=== PATIENT | male | born 1965 | race Caucasian/White ===

== ENCOUNTER 2016-08-29 16:41 | Emergency (ER) | payer OTHER ==
--- NOTE | 2016-08-29 16:53 | ED ---
Syncope HPI - General Stated Complaint: syncope Time Seen by Provider: 08/29/16 16:49 - History of Present Illness Initial Comments: 51-year-old male having pressure on the left side of his scalp over the last 2 weeks. No fever no chills. Thinks it is related to food. His with him most the time. No focal numbness or weakness no visual disturbance changed his diet and cut way back today he felt faint he had no chest pain palpitations shortness of breath he just felt lightheaded dimming and then he found himself on the floor. Said no nausea no vomiting no diarrhea. Evaluated for seizures since childhood and was negative evaluation. Had problems for orthostatic changes when he would change positions quickly does not had that it also sees grown-up. - Related Data Home Medications Medication Instructions Recorded Confirmed Lisinopril [Zestril] 10 mg PO DAILY 12/27/14 08/29/16 Atorvastatin [Lipitor] 10 mg PO HS 08/29/16 08/29/16 Fish Oil/Dha/Epa [Fish Oil 1,200 1 cap PO DAILY 08/29/16 08/29/16 mg Fish Oil] Glucosamine Sulfate 500 mg PO DAILY 08/29/16 08/29/16 Turmeric Root Extract [Turmeric] 500 mg PO DAILY 08/29/16 08/29/16 Previous Rx's Medication Instructions Recorded Sulfamethox-Tmp 800-160Mg [Bactrim 1 tab PO Q12HR #20 tab 08/29/16 DS 800-160 mg] Allergies Allergy/AdvReac Type Severity Reaction Status Date / Time cortisone Allergy Unknown Unknown Verified 08/29/16 17:11 Childhood Penicillins Allergy Unknown Unknown Verified 08/29/16 17:11 Childhood Review of Systems ROS Statement: Those systems with pertinent positive or pertinent negative responses have been documented in the HPI. ROS Other: All systems not noted in ROS Statement are negative. Constitutional: Denies: fever, chills ENT: Denies: ear pain, throat pain Respiratory: Denies: cough Cardiovascular: Denies: chest pain, dyspnea on exertion Gastrointestinal: Denies: abdominal pain, nausea, vomiting, diarrhea Skin: Denies: rash Neurological: Reports: headache. Denies: weakness, numbness, paresthesias, confusion Psychiatric: Denies: anxiety, depression Hematological/Lymphatic: Denies: easy bleeding, easy bruising Past Medical History Past Medical History: Asthma, Hypertension, Osteoarthritis (OA) Additional Past Medical History / Comment(s): PAST HX OF ASTHMA, "RIGHT KIDNEY HURTS ON OCCASION"., FELL ON ICE IN OCTOBER AND INJURED RIGHT KNEE. History of Any Multi-Drug Resistant Organisms: None Reported Past Surgical History: No Surgical Hx Reported Additional Past Anesthesia/Blood Transfusion Reaction / Comment(s): HAS NEVER RECEIVED ANETHESIA Past Psychological History: No Psychological Hx Reported Smoking Status: Never smoker Past Alcohol Use History: None Reported Past Drug Use History: None Reported - Past Family History Mother Additional Family Medical History / Comment(s): CLOT IN BRAIN? General Exam General appearance: alert, in no apparent distress Head exam: Present: atraumatic Eye exam: Present: PERRL, EOMI ENT exam: Present: normal oropharynx, mucous membranes moist, TM's normal bilaterally Neck exam: Present: normal inspection Respiratory exam: Present: normal lung sounds bilaterally Cardiovascular Exam: Present: regular rate, normal heart sounds GI/Abdominal exam: Present: soft. Absent: tenderness Neurological exam: Present: alert, CN II-XII intact Psychiatric exam: Present: normal affect, normal mood Skin exam: Present: warm, dry Course Vital Signs 08/29/16 16:55 Temperature 100.2 F H Pulse Rate 79 Respiratory 18 Rate Blood Pressure 126/62 O2 Sat by Pulse 93 L Oximetry Medical Decision Making - Lab Data Result diagrams: 08/29/16 16:30 08/29/16 16:30 Lab Results 08/29/16 08/29/16 08/29/16 Range/Units 16:30 16:30 16:30 WBC 11.4 H (3.8-10.6) k/uL RBC 5.31 (4.30-5.90) m/uL Hgb 15.8 (13.0-17.5) gm/dL Hct 47.6 (39.0-53.0) % MCV 89.7 (80.0-100.0) fL MCH 29.8 (25.0-35.0) pg MCHC 33.3 (31.0-37.0) g/dL RDW 12.6 (11.5-15.5) % Plt Count 310 (150-450) k/uL Neutrophils % 69 % Lymphocytes % 20 % Monocytes % 8 % Eosinophils % 1 % Basophils % 1 % Neutrophils # 7.8 H (1.3-7.7) k/uL Lymphocytes # 2.2 (1.0-4.8) k/uL Monocytes # 0.9 (0-1.0) k/uL Eosinophils # 0.1 (0-0.7) k/uL Basophils # 0.1 (0-0.2) k/uL PT (9.0-12.0) sec INR (<1.1) APTT (22.0-30.0) sec Sodium 139 (137-145) mmol/L Potassium 4.1 (3.5-5.1) mmol/L Chloride 103 (98-107) mmol/L Carbon Dioxide 24 (22-30) mmol/L Anion Gap 12 mmol/L BUN 14 (9-20) mg/dL Creatinine 1.12 (0.66-1.25) mg/dL Est GFR (MDRD) Af Amer >60 (>60 ml/min/1.73 sqM) Est GFR (MDRD) Non-Af >60 (>60 ml/min/1.73 sqM) Glucose 109 H (74-99) mg/dL POC Glucose (mg/dL) (75-99) mg/dL POC Glu Lobster Catcher ID Calcium 9.3 (8.4-10.2) mg/dL Total Bilirubin 1.0 (0.2-1.3) mg/dL AST 16 L (17-59) U/L ALT 35 (21-72) U/L Alkaline Phosphatase 64 (38-126) U/L Total Creatine Kinase 75 (55-170) U/L CK-MB (CK-2) 0.6 (0.0-2.4) ng/mL CK-MB (CK-2) Rel Index 0.8 Troponin I <0.012 (0.000-0.034) ng/mL Total Protein 6.9 (6.3-8.2) g/dL Albumin 4.0 (3.5-5.0) g/dL 08/29/16 08/29/16 Range/Units 16:30 16:47 WBC (3.8-10.6) k/uL RBC (4.30-5.90) m/uL Hgb (13.0-17.5) gm/dL Hct (39.0-53.0) % MCV (80.0-100.0) fL MCH (25.0-35.0) pg MCHC (31.0-37.0) g/dL RDW (11.5-15.5) % Plt Count (150-450) k/uL Neutrophils % % Lymphocytes % % Monocytes % % Eosinophils % % Basophils % % Neutrophils # (1.3-7.7) k/uL Lymphocytes # (1.0-4.8) k/uL Monocytes # (0-1.0) k/uL Eosinophils # (0-0.7) k/uL Basophils # (0-0.2) k/uL PT 11.1 (9.0-12.0) sec INR 1.1 (<1.1) APTT 23.2 (22.0-30.0) sec Sodium (137-145) mmol/L Potassium (3.5-5.1) mmol/L Chloride (98-107) mmol/L Carbon Dioxide (22-30) mmol/L Anion Gap mmol/L BUN (9-20) mg/dL Creatinine (0.66-1.25) mg/dL Est GFR (MDRD) Af Amer (>60 ml/min/1.73 sqM) Est GFR (MDRD) Non-Af (>60 ml/min/1.73 sqM) Glucose (74-99) mg/dL POC Glucose (mg/dL) 101 H (75-99) mg/dL POC Glu Lobster Catcher ID Ney Dash Calcium (8.4-10.2) mg/dL Total Bilirubin (0.2-1.3) mg/dL AST (17-59) U/L ALT (21-72) U/L Alkaline Phosphatase (38-126) U/L Total Creatine Kinase (55-170) U/L CK-MB (CK-2) (0.0-2.4) ng/mL CK-MB (CK-2) Rel Index Troponin I (0.000-0.034) ng/mL Total Protein (6.3-8.2) g/dL Albumin (3.5-5.0) g/dL - EKG Data -: EKG Interpreted by Me 08/29/16 16:52 EKG 08/29/2016 1650 ventricular rate 79 bpm, NJ interval 170 ms QRS duration 104 ms QT interval 390 ms normal sinus rhythm normal ECG. - Radiology Data Radiology results: report reviewed CT returns with no intracranial abnormality but ethmoid and left maxillary sinusitis Disposition Clinical Impression: Vasovagal syncope, Ethmoid sinusitis Disposition: HOME SELF-CARE Condition: Good Instructions: Syncope (ED), Sinusitis (ED) Prescriptions: Sulfamethox-Tmp 800-160Mg [Bactrim DS 800-160 mg] 1 tab PO Q12HR #20 tab Time of Disposition: 18:11
[2016-08-29] MEDS ORDERED: SODIUM CHLORIDE 0.9% 500 ML IV STA (17:04)
[2016-08-29 17:06] LABS: Glucose,Whole Blood 101 mg/dL (75-99)
[2016-08-29 17:26] LABS: Basophils # (A) 0.1 k/uL (0-0.2); Basophils % (A) 1 %; CHCM 33.6; Eosinophils # (A) 0.1 k/uL (0-0.7); Eosinophils % (A) 1 %; HCT 47.6 % (39.0-53.0); HDW 2.33; HGB 15.8 gm/dL (13.0-17.5); Luc # (Auto) 0.36; Luc % (Auto) 3; Lymphocytes # (A) 2.2 k/uL (1.0-4.8); Lymphocytes % (A) 20 %; MCH 29.8 pg (25.0-35.0); MCHC 33.3 g/dL (31.0-37.0); MCV 89.7 fL (80.0-100.0); Mean Platelet Volume 7.1; Monocytes # (A) 0.9 k/uL (0-1.0); Monocytes % (A) 8 %; Neutrophils # (A) 7.8 k/uL (1.3-7.7); Neutrophils % (A) 69 %; RBC 5.31 m/uL (4.30-5.90); RDW 12.6 % (11.5-15.5); WBC 11.4 k/uL (3.8-10.6); WBC (Perox) 11.75
[2016-08-29 17:37] LABS: INR 1.1 (<1.1); Partial Thromboplastin Time 23.2 sec (22.0-30.0); Prothrombin Time 11.1 sec (9.0-12.0)
--- NOTE | 2016-08-29 17:44 | CT ---
EXAMINATION TYPE: CT brain wo con DATE OF EXAM: 08/29/2016 5:35 PM COMPARISON: NONE HISTORY: 51-year-old male with left sided headache TECHNIQUE: Examination was done in axial plane without intravenous contrast. Coronal and sagittal reconstructio ns performed. CT DLP: 1090.4 mGycm Automated exposure control for dose reduction was used. FINDINGS: There is no evidence of acute intracranial hemorrhage, acute ischemic changes, mass, mass-effect, or extra-axial fluid collection. There is no effacement of cerebral sulci or basal subarachnoid cister ns. There is no hydrocephalus. Slight asymmetry of the left lateral ventricle likely on the basis of congenital variation. There is no midline shift. Foster-white matter distinction is preserved. Moderate mucosal thickening left maxillary sinus and anterior left ethmoid air cells with air-fluid l evel in the left maxillary sinus. Cerumen within the left greater than right external auditory canal. Mastoid air cells well pneumatized. Rightward nasal septal deviation. Orbits and globes are intact. IMPRESSION: 1. No acute intracranial abnormality seen. 2. Acute on chronic left maxillary sinusitis. 3. Rightward nasal septal deviation.
--- NOTE | 2016-08-29 17:45 | XR ---
EXAMINATION TYPE: XR chest 2V DATE OF EXAM: 08/29/2016 5:25 PM COMPARISON: None HISTORY: 51-year-old male with syncope TECHNIQUE: Frontal and lateral views FINDINGS: The cardiomediastinal silhouette, aorta, and pulmonary vasculature are within normal limits. Lungs an d pleural spaces are clear. IMPRESSION: No acute cardiopulmonary process.
[2016-08-29 17:48] LABS: Creatine Kinase 75 U/L (55-170)
[2016-08-29 17:49] LABS: ALT 35 U/L (21-72); AST 16 U/L (17-59); Alkaline Phosphatase 64 U/L (38-126); Anion Gap 12 mmol/L; Blood Urea Nitrogen 14 mg/dL (9-20); Calcium 9.3 mg/dL (8.4-10.2); Carbon Dioxide 24 mmol/L (22-30); Chloride 103 mmol/L (98-107); Glucose 109 mg/dL (74-99); Non-African American GFR(MDRD) >60 (>60 ml/min/1.73 sqM); Potassium 4.1 mmol/L (3.5-5.1); Sodium 139 mmol/L (137-145); Total Protein 6.9 g/dL (6.3-8.2)
[2016-08-29 18:00] LABS: Creatine Kinase MB 0.6 ng/mL (0.0-2.4); Troponin I <0.012 ng/mL (0.000-0.034)
[2016-08-29 18:24] LABS: Erythrocyte Sedimentation Rate 7 mm/hr (0-15)
[2016-08-29 18:38] VITALS: BP 124/62; PULSE 74; RESP 16; TEMP 99.8
== END 2016-08-29 18:59 | disposition home or self-care (01) ==
LOC: EC 16:41
DX: J32.2 Chronic ethmoidal sinusitis (principal); J32.0 Chronic maxillary sinusitis; R55 Syncope and collapse; I10 Essential (primary) hypertension; M19.90 Unspecified osteoarthritis, unspecified site; Z79.899 Other long term (current) drug therapy; Z88.0 Allergy status to penicillin; Z88.8 Allergy status to other drugs, medicaments and biological substances
CPT/HCPCS: 36415; 70450; 71020; 80053; 82550; 82553; 84484; 85025; 85610; 85652; 85730; 93005; 96360; 99284

== ENCOUNTER → 2016-10-23 | Outpatient (CLI) | payer OTHER ==
--- NOTE | 2016-10-23 17:38 | US ---
EXAMINATION TYPE: US carotid duplex BILAT DATE OF EXAM: 10/23/2016 5:16 PM COMPARISON: NONE CLINICAL HISTORY: M54.2 Cervicalgia. EXAM MEASUREMENTS: RIGHT: Peak Systolic Velocity (PSV) cm/sec ----- Right CCA: 100.5 ----- Right ICA: 86.6 ----- Right ECA: 115.8 ICA/CCA ratio: 0.9 RIGHT: End Diastole cm/sec ----- Right CCA: 21.5 ----- Right ICA: 34.8 ----- Right ECA: 18.8 LEFT: Peak Systolic Velocity (PSV) cm/sec ----- Left CCA: 95.5 ----- Left ICA: 85.4 ----- Left ECA: 112.2 ICA/CCA ratio: 0.9 LEFT: End Diastole cm/sec ----- Left CCA: 24.8 ----- Left ICA: 26.0 ----- Left ECA: 19.5 VERTEBRALS (direction of flow): Right Vertebral: Antegrade Left Vertebral: Antegrade TECHNOLOGIST IMPRESSION: Very mild intimal wall thickening is noted at bilateral carotid bifurcation and PSV is wnl bilaterally. IMPRESSION: There is antegrade flow in the vertebral arteries. The images and measurements suggest c lose to 0% stenosis in both internal carotid arteries. Criteria for Assigning % of Stenosis / Diameter reduction (Estimation based on the indirect measurements of the internal carotid artery velocities (ICA PSV). 1. Normal (no stenosis)=ICA PSV < 125 cm/s: ratio < 2.0: ICA EDV<40 cm/s. 2. Less than 50% stenosis=ICA PSV < 125 cm/s: ratio < 2.0: ICA EDV<40 cm/s. 3. 50 to 69% stenosis=ICA PSV of 125 to 230 cm/s: ration 2.0 ? 4.0: ICA EDV 40-100 cm/s. 4. Greater than 70% stenosis to near occlusion= ICA PSV > 230 cm/s: ratio > 4.0: ICA EDV > 100 cm/s. 5. Near occlusion= ICA PSV velocities may be low or undetectable: variable ratio and ICA EDV. 6. Total occlusion=unable to detect flow.
== END | disposition home or self-care (01) ==
LOC: RADUSWWP 16:52
PROVIDERS: ATTEND Family Medicine
DX: M54.2 Cervicalgia (principal)
CPT/HCPCS: 93880

== ENCOUNTER 2016-11-13 07:48 | Observation (INO) | payer OTHER ==
[2016-11-13] MEDS ORDERED: SODIUM CHLORIDE 0.9% 1,000 ML IV STA (08:11)
[2016-11-13] MEDS ORDERED: ASPIRIN 81 MG CHEW PO STA (08:11)
[2016-11-13] MEDS ORDERED: NITROGLYCERIN OINT 1 INCH/GM PACKET TOPICAL STA (08:11)
--- NOTE | 2016-11-13 08:20 | ED ---
General Adult HPI - General Chief complaint: Back Pain/Injury Stated complaint: heart burn, chest tightness Time Seen by Provider: 11/13/16 08:01 Source: patient, RN notes reviewed Mode of arrival: wheelchair Limitations: no limitations - History of Present Illness Initial comments: Patient is a pleasant 51-year-old male presenting to the emergency department with chest and back discomfort. Onset of symptoms was a couple of days ago. Back discomfort is somewhat positional. Back discomfort is more so on the right than the left in the mid back. Patient was having some indigestion for the past few days. Patient states discomfort in the chest feels more like tightness today and more in the left side. Patient states both discomforts are mild at this time. No dyspnea, diaphoresis, or nausea. - Related Data Home Medications Medication Instructions Recorded Confirmed Lisinopril [Zestril] 10 mg PO DAILY 12/27/14 11/13/16 Fish Oil/Dha/Epa [Fish Oil 1,200 1 cap PO DAILY 08/29/16 11/13/16 mg Fish Oil] Glucosamine Sulfate 500 mg PO DAILY 08/29/16 11/13/16 Turmeric Root Extract [Turmeric] 500 mg PO DAILY 08/29/16 11/13/16 Aspirin 81 mg PO DAILY 11/13/16 11/13/16 Allergies Allergy/AdvReac Type Severity Reaction Status Date / Time cortisone Allergy Unknown Unknown Verified 11/13/16 08:29 Childhood Penicillins Allergy Unknown Unknown Verified 11/13/16 08:29 Childhood Review of Systems ROS Statement: Those systems with pertinent positive or pertinent negative responses have been documented in the HPI. ROS Other: All systems not noted in ROS Statement are negative. Constitutional: Denies: fever Eyes: Denies: eye pain ENT: Denies: ear pain Respiratory: Denies: cough, dyspnea Cardiovascular: Reports: chest pain Endocrine: Denies: fatigue Gastrointestinal: Denies: abdominal pain Genitourinary: Denies: urgency Musculoskeletal: Reports: back pain Skin: Denies: rash Neurological: Denies: weakness Past Medical History Past Medical History: Asthma, Hypertension, Osteoarthritis (OA) Additional Past Medical History / Comment(s): PAST HX OF ASTHMA, "RIGHT KIDNEY HURTS ON OCCASION"., FELL ON ICE IN OCTOBER AND INJURED RIGHT KNEE. History of Any Multi-Drug Resistant Organisms: None Reported Past Surgical History: Orthopedic Surgery Additional Past Anesthesia/Blood Transfusion Reaction / Comment(s): HAS NEVER RECEIVED ANETHESIA Past Psychological History: No Psychological Hx Reported Smoking Status: Never smoker Past Alcohol Use History: None Reported Past Drug Use History: None Reported - Past Family History Mother Additional Family Medical History / Comment(s): CLOT IN BRAIN? General Exam Limitations: no limitations General appearance: alert, in no apparent distress Head exam: Present: atraumatic Eye exam: Present: normal appearance, PERRL ENT exam: Present: normal oropharynx Neck exam: Present: normal inspection Respiratory exam: Present: normal lung sounds bilaterally. Absent: chest wall tenderness Cardiovascular Exam: Present: regular rate, normal rhythm Expanded Peripheral pulses: 2+: Radial (R), Radial (L), Dorsalis Pedis (R), Dorsalis Pedis (L) GI/Abdominal exam: Present: soft. Absent: tenderness Back exam: Present: normal inspection, tenderness (Mild discomfort above the right CVA region) Neurological exam: Present: alert Psychiatric exam: Present: normal affect, normal mood Skin exam: Absent: rash Course Vital Signs 11/13/16 11/13/16 11/13/16 07:49 09:00 09:50 Temperature 98.1 F Pulse Rate 82 60 66 Respiratory 18 20 Rate Blood Pressure 143/76 123/79 O2 Sat by Pulse 96 93 L Oximetry EKG Findings - EKG Comments: EKG Findings:: Normal sinus rhythm at 69. Normal intervals. Normal axis. Normal QRS. Normal ST-T. Medical Decision Making - Medical Decision Making Patient reexamined and resting comfortably in bed. Patient updated on results and plan. Patient states she is improved with nitroglycerin. Case discussed in detail with Dr. keys, who will admit for Dr. Saravia. Admission orders written. Cardiology consult placed. IV heparin started. - Lab Data Result diagrams: 11/13/16 08:42 11/13/16 08:42 Lab Results 11/13/16 11/13/16 11/13/16 Range/Units 08:42 08:42 08:42 WBC 6.4 (3.8-10.6) k/uL RBC 5.66 (4.30-5.90) m/uL Hgb 16.8 (13.0-17.5) gm/dL Hct 50.6 (39.0-53.0) % MCV 89.4 (80.0-100.0) fL MCH 29.6 (25.0-35.0) pg MCHC 33.1 (31.0-37.0) g/dL RDW 12.4 (11.5-15.5) % Plt Count 298 (150-450) k/uL Neutrophils % 66 % Lymphocytes % 23 % Monocytes % 5 % Eosinophils % 1 % Basophils % 1 % Neutrophils # 4.2 (1.3-7.7) k/uL Lymphocytes # 1.5 (1.0-4.8) k/uL Monocytes # 0.3 (0-1.0) k/uL Eosinophils # 0.1 (0-0.7) k/uL Basophils # 0.1 (0-0.2) k/uL PT (9.0-12.0) sec INR (<1.1) APTT (22.0-30.0) sec D-Dimer (<0.60) mg/L FEU Sodium 139 (137-145) mmol/L Potassium 4.6 (3.5-5.1) mmol/L Chloride 106 (98-107) mmol/L Carbon Dioxide 24 (22-30) mmol/L Anion Gap 9 mmol/L BUN 19 (9-20) mg/dL Creatinine 0.98 (0.66-1.25) mg/dL Est GFR (MDRD) Af Amer >60 (>60 ml/min/1.73 sqM) Est GFR (MDRD) Non-Af >60 (>60 ml/min/1.73 sqM) Glucose 97 (74-99) mg/dL Calcium 9.3 (8.4-10.2) mg/dL Magnesium 2.1 (1.6-2.3) mg/dL Total Bilirubin 0.9 (0.2-1.3) mg/dL AST 24 (17-59) U/L ALT 22 (21-72) U/L Alkaline Phosphatase 55 (38-126) U/L Total Creatine Kinase 83 (55-170) U/L CK-MB (CK-2) 0.7 (0.0-2.4) ng/mL CK-MB (CK-2) Rel Index 0.8 Troponin I <0.012 (0.000-0.034) ng/mL Total Protein 6.9 (6.3-8.2) g/dL Albumin 4.1 (3.5-5.0) g/dL 11/13/16 Range/Units 08:42 WBC (3.8-10.6) k/uL RBC (4.30-5.90) m/uL Hgb (13.0-17.5) gm/dL Hct (39.0-53.0) % MCV (80.0-100.0) fL MCH (25.0-35.0) pg MCHC (31.0-37.0) g/dL RDW (11.5-15.5) % Plt Count (150-450) k/uL Neutrophils % % Lymphocytes % % Monocytes % % Eosinophils % % Basophils % % Neutrophils # (1.3-7.7) k/uL Lymphocytes # (1.0-4.8) k/uL Monocytes # (0-1.0) k/uL Eosinophils # (0-0.7) k/uL Basophils # (0-0.2) k/uL PT 11.2 (9.0-12.0) sec INR 1.1 (<1.1) APTT 25.3 (22.0-30.0) sec D-Dimer 0.19 (<0.60) mg/L FEU Sodium (137-145) mmol/L Potassium (3.5-5.1) mmol/L Chloride (98-107) mmol/L Carbon Dioxide (22-30) mmol/L Anion Gap mmol/L BUN (9-20) mg/dL Creatinine (0.66-1.25) mg/dL Est GFR (MDRD) Af Amer (>60 ml/min/1.73 sqM) Est GFR (MDRD) Non-Af (>60 ml/min/1.73 sqM) Glucose (74-99) mg/dL Calcium (8.4-10.2) mg/dL Magnesium (1.6-2.3) mg/dL Total Bilirubin (0.2-1.3) mg/dL AST (17-59) U/L ALT (21-72) U/L Alkaline Phosphatase (38-126) U/L Total Creatine Kinase (55-170) U/L CK-MB (CK-2) (0.0-2.4) ng/mL CK-MB (CK-2) Rel Index Troponin I (0.000-0.034) ng/mL Total Protein (6.3-8.2) g/dL Albumin (3.5-5.0) g/dL - Radiology Data Radiology results: image reviewed (Chest x-ray shows scarring versus atelectasis left base. KUB shows no acute abnormality.) Critical Care Time Critical Care Time: Yes Total Critical Care Time: 31 Disposition Clinical Impression: Unstable angina Disposition: ADMITTED IP TO THIS HOSP
[2016-11-13 09:09] LABS: Basophils # (A) 0.1 k/uL (0-0.2); Basophils % (A) 1 %; CH 30.2; Eosinophils # (A) 0.1 k/uL (0-0.7); Eosinophils % (A) 1 %; HCT 50.6 % (39.0-53.0); HDW 2.43; HGB 16.8 gm/dL (13.0-17.5); Luc # (Auto) 0.23; Luc % (Auto) 4; Lymphocytes # (A) 1.5 k/uL (1.0-4.8); Lymphocytes % (A) 23 %; MCH 29.6 pg (25.0-35.0); MCHC 33.1 g/dL (31.0-37.0); MCV 89.4 fL (80.0-100.0); Mean Platelet Volume 7.3; Monocytes # (A) 0.3 k/uL (0-1.0); Monocytes % (A) 5 %; Neutrophils # (A) 4.2 k/uL (1.3-7.7); Neutrophils % (A) 66 %; RBC 5.66 m/uL (4.30-5.90); RDW 12.4 % (11.5-15.5); WBC 6.4 k/uL (3.8-10.6); WBC (Perox) 6.25
--- NOTE | 2016-11-13 09:14 | XR ---
EXAMINATION TYPE: XR chest 2V DATE OF EXAM: 11/13/2016 9:10 AM HISTORY: Chest Pain. REFERENCE: Previous study dated 08/29/2016. FINDINGS: A battery pack projects over the left side of the chest. There is scarring or atelectasis at the left lung base.. Pleural spaces are clear. Heart size is norm al. IMPRESSION: SCARRING VERSUS ATELECTASIS, LEFT LUNG BASE.
--- NOTE | 2016-11-13 09:15 | XR ---
EXAMINATION TYPE: XR KUB DATE OF EXAM ORDERED: 11/13/2016 9:09 AM HISTORY: Pain. COMPARISON: None. FINDINGS: The abdominal gas pattern is normal. There is no evidence of obstruction or free air. No u nusual calcifications are seen. IMPRESSION: NO ACUTE INTRA-ABDOMINAL ABNORMALITY.
[2016-11-13 09:27] LABS: INR 1.1 (<1.1); Partial Thromboplastin Time 25.3 sec (22.0-30.0); Prothrombin Time 11.2 sec (9.0-12.0)
[2016-11-13 09:35] LABS: ALT 22 U/L (21-72); AST 24 U/L (17-59); Alkaline Phosphatase 55 U/L (38-126); Anion Gap 9 mmol/L; Blood Urea Nitrogen 19 mg/dL (9-20); Calcium 9.3 mg/dL (8.4-10.2); Carbon Dioxide 24 mmol/L (22-30); Chloride 106 mmol/L (98-107); Glucose 97 mg/dL (74-99); Magnesium 2.1 mg/dL (1.6-2.3); Non-African American GFR(MDRD) >60 (>60 ml/min/1.73 sqM); Sodium 139 mmol/L (137-145); Total Bilirubin 0.9 mg/dL (0.2-1.3); Total Protein 6.9 g/dL (6.3-8.2)
[2016-11-13 09:41] LABS: Creatine Kinase 83 U/L (55-170); Potassium 4.6 mmol/L (3.5-5.1)
[2016-11-13 09:53] LABS: Creatine Kinase MB 0.7 ng/mL (0.0-2.4); Troponin I <0.012 ng/mL (0.000-0.034)
[2016-11-13] MEDS ORDERED: HEPARIN SODIUM,PORCINE 5,000 UNIT/ML 1 ML VIAL IV ONE (10:24)
[2016-11-13] MEDS ORDERED: NITROGLYCERIN SL TABS 0.4 MG TAB SUBLINGUAL PRN (10:24)
[2016-11-13] MEDS ORDERED: HEPARIN SODIUM,PORCINE 5,000 UNIT/ML 1 ML VIAL IV PRN (10:24)
[2016-11-13] MEDS ORDERED: HEPARIN SODIUM,PORCINE/D5W PMX 25,000 UNIT in DEXTROSE/WATER 1 500ML.BAG IV SCH (10:30)
[2016-11-13] MEDS ORDERED: NITROGLYCERIN OINT 1 INCH/GM PACKET TOPICAL SCH (12:00)
[2016-11-13 13:01] VITALS: PULSE 59
[2016-11-13 13:21] LABS: Appearance,Urine Clear (Clear); Bilirubin,Urine Negative (Negative); Glucose,Urine (UA) Negative (Negative); Ketones,Urine 1+ (Negative); Leukocyte Esterase,Urine Negative (Negative); Nitrite,Urine Negative (Negative); PH, Urine 6.5 (5.0-8.0); Protein,Urine Negative (Negative); UA Billing (MACRO vs. MICRO) CHEM; Urobilinogen,Urine <2.0 mg/dL (<2.0)
[2016-11-13] MEDS ORDERED: LISINOPRIL 10 MG TAB PO SCH (13:45)
[2016-11-13 14:41] LABS: Creatine Kinase 72 U/L (55-170)
--- NOTE | 2016-11-13 14:51 | XR ---
EXAMINATION TYPE: XR lumbar spine with bend/flex DATE OF EXAM ORDERED: 11/13/2016 2:17 PM HISTORY: low back pain at LS junction. COMPARISON: None. FINDINGS: Vertebral body height and alignment are maintained. There is no abnormal motion of the spi ne in flexion or extension. There is no spondylolisthesis or spondylolysis. There is disc space loss at L5-S1. There is a large hypertrophic spur arising anteriorly at L1-2. There is mild facet arthropa thy bilaterally at L5-4-5 and L5-S1. The pedicles are intact. IMPRESSION: 1. NO ACUTE OSSEOUS LESION. 2. MODERATE DEGENERATIVE CHANGE.
[2016-11-13 14:54] LABS: Creatine Kinase MB 0.5 ng/mL (0.0-2.4); Troponin I <0.012 ng/mL (0.000-0.034)
--- NOTE | 2016-11-13 15:55 | CONS ---
DATE OF CONSULTATION: CHIEF COMPLAINT: Chest pain. Ritchie is a 51-year-old gentleman with history of hypertension and dyslipidemia, who has had an episode of syncope in August of this year and is currently being worked up by Dr. Maza in my practice. Came to hospital primarily with left-sided flank discomfort. they put nitro paste on him following which his pain had resolved. The last few days the patient has had heartburn. At the time of my evaluation, he is pain free, hemodynamically stable and in no apparent distress. He had an EKG that is within normal limits without ST-T wave changes. One set of troponin is negative. Past medical history is significant for hypertension, dyslipidemia, and syncope. Medications include tumeric, Zestril 10 daily, glucosamine 500 daily, fish oil, and aspirin. ALLERGIC TO PENICILLIN AND CORTISONE. FAMILY HISTORY: Negative for premature coronary artery disease. SOCIAL HISTORY: Negative for smoking, EtOH abuse or drug abuse. REVIEW OF SYSTEMS: HEENT: Unremarkable. CARDIAC: As described above. RESPIRATORY: Negative. GI: Negative. GENITOURINARY: Negative. ALLERGY/IMMUNOLOGY: Negative. MUSCULOSKELETAL: Negative. DERM: Negative. CONSTITUTIONAL: Negative. ONCOLOGICAL: Negative. The rest of the system review is not relevant. On exam, comfortable at rest. Vital signs are stable. There is no jugular venous distention. Carotid upstroke is normal. There is no bruit. Chest exam reveals good air entry bilaterally. Heart exam reveals first and second heart sounds. No gallop. No murmur, no rub. Abdomen is soft, nontender. Exam of the extremities did not reveal edema. Peripheral pulses are felt. ASSESSMENT: 1. Atypical chest pain, probably related to heartburn. 2. History of syncope, work-up in progress. Patient currently has an event monitor on him. PLAN: Patient has already been scheduled for an outpatient stress test and echocardiogram next week. Will obtain serial CPKs and EKGs. If myocardial infarction is ruled out, please stop the heparin, discharge him home and asked him to keep his follow-up with Dr. Maza.
[2016-11-13 16:39] VITALS: BP 113/67; RESP 18; TEMP 98.2
--- NOTE | 2016-11-13 16:40 | HP ---
DATE OF ADMISSION: 11/13/2016 PRESENTING COMPLAINT: Not feeling well HISTORY OF PRESENTING COMPLAINT: This is a 51-year-old patient of Dr. Saravia whose chronic stable medical conditions include asthma, GERD, hypertension, osteoarthritis. Patient had some nonspecific symptoms for about 2 to 3 months. Back in August the patient started not eating too much, started not feeling well. Wednesday decided not to eat and towards the evening, actually had an episode when he passed out. Saw Dr. Maza and patient got a monitor, which he is supposed to wear for 4 weeks. He is into 3 weeks. Now patient presented with multitude of symptoms including heartburn, just central, does not radiate anywhere. Also he describes some pain in the left side of the chest, more so when he turns around. Does not radiate to neck or arm, not associated with short of breath. No dizziness. Localized. Like I said is very particular in position when he turns. Also patient has got low back pain at the level of the hip and very particular in a particular position, slightly better when he walks around but worse when he gets up in the morning. Because of these multitude of symptoms, the patient decided to come in. Patient was supposed to have a stress test per Cardiology. The patient was scheduled to have a stress test as an outpatient by Dr. Maza. When given a history he flipped from one symptom to the other, different parts of the body. REVIEW OF SYSTEMS: CONSTITUTIONAL: None. HEENT: Also complains of some pain in her neck sometimes. RESPIRATORY: As above. CARDIOVASCULAR: As above. GASTROINTESTINAL: Heartburn. GENITOURINARY: None. MUSCULOSKELETAL: Arthritic pain, especially in the knees. DERMATOLOGICAL: None. HEMATOLOGICAL: None. LYMPHATIC: None. PSYCHIATRY: Very anxious type. NEUROLOGICAL: None. Past history of asthma, GERD, hypertension, osteoarthritis. PAST SURGICAL HISTORY: Right knee arthroscopy. SOCIAL HISTORY: Lives by himself, does not smoke or drink alcohol. FAMILY HISTORY: Mother age of 85 with clot in the brain. HOME MEDICATIONS: 1. ( ) 500 mg p.o. daily. 2. Zestril 10 mg p.o. daily. 3. Glucosamine 500 mg p.o. daily. 4. Fish oil 1 capsule p.o. daily. 5. Aspirin 81 mg p.o. daily. ALLERGIES: CORTISONE AND PENICILLIN. On examination, temperature 98.1, pulse 82, respiration 18, blood pressure 142/76, pulse ox 96% on room air. GENERAL APPEARANCE: Well built, BMI of 33.5, sitting up, anxious -appearing. EYES: Pupils equal. Conjunctivae normal. HEENT: Oral cavity normal. NECK: JVD not raised. Mass not palpable. RESPIRATORY: Effort normal. Lungs are clear. CARDIOVASCULAR: First and second sounds normal. No edema. ABDOMEN: Soft, nontender. Liver and spleen not palpable. LYMPHATIC: No lymph node palpable in neck or axillae. PSYCHIATRY: Alert and oriented x3. Mood and affect anxious appearing. NEUROLOGICAL: Pupils equal. Cranial nerves grossly intact. Power and sensation grossly intact. INVESTIGATIONS: White count 6.5, hemoglobin 16.8, potassium 4.6. BUN and creatinine are normal. EKG normal sinus rhythm. ASSESSMENT: 1. This is a patient with multitude of symptoms not really cardiac sounding. Patient's chest wall pain sounds to be more musculoskeletal as it is very positional. Patient already has wood type finisher arranged as per outpatient and due for stress test as an outpatient. 2. Low back pain rather classical of musculoskeletal. Will get a lumbar spine x-ray done. 3. Mild intermittent asthma. 4. Gastroesophageal reflux disease. 5. Essential hypertension. 6. Primary osteoarthritis of both knees. PLAN: Cardiology was consulted. Troponins are in place. Will do a lumbosacral spine x-ray. Since patient's symptoms seems to be present for 3 days and actually 1 troponin by itself is sufficient. Care was discussed with the patient. Will await cardiac input and go from there.
[2016-11-14] MEDS ORDERED: ASPIRIN 325 MG TAB PO SCH (09:00)
[2016-11-14] MEDS ORDERED: ASPIRIN 81 MG CHEW PO SCH (09:00)
--- NOTE | 2016-11-16 18:17 | DS ---
DATE OF ADMISSION: 11/13/2016 DATE OF DISCHARGE: 11/13/2016 FINAL DIAGNOSIS(ES): 1. Lower back pain from lumbar degenerative joint disease , present at admission. 2. Mild intermittent asthma. 3. Gastroesophageal reflux disease. 4. Essential admission. 5. Primary osteoarthritis of both knees. HOSPITAL COURSE: This patient presented with low back pain. X-ray did confirm degenerative joint disease. Patient already put on monitor by Dr. Maza. Troponins are negative. Patient scheduled for an outpatient stress test. Seen by Dr. Lira. Wishes to keep him to do the stress test as an outpatient. The patient's presentation is noncardiac sounding. On exam, lungs are clear. CARDIOVASCULAR: First and second sounds normal. Tropes are negative. DISCHARGE MEDICATIONS: 1. Zestril 10 mg p.o. daily. 2. Fish oil 200 mg p.o. daily. 3. Glucosamine 500 mg p.o. daily. 4. Demadex 5 mg p.o. daily. 5. Aspirin 81 mg p.o. daily. Follow-up with Dr. Saravia on 11/17/2016. Follow-up with Dr. Maza in one week.
== END 2016-11-13 17:44 | disposition home or self-care (01) ==
LOC: EC 07:48 → 3OBS 10:24
PROVIDERS: ADMIT Hospitalist; ATTEND Hospitalist
DX: M47.816 Spondylosis without myelopathy or radiculopathy, lumbar region (principal); J45.20 Mild intermittent asthma, uncomplicated; R07.89 Other chest pain; K21.9 Gastro-esophageal reflux disease without esophagitis; I10 Essential (primary) hypertension; M17.0 Bilateral primary osteoarthritis of knee; R55 Syncope and collapse; E78.5 Hyperlipidemia, unspecified; M19.90 Unspecified osteoarthritis, unspecified site; R12 Heartburn; Z79.82 Long term (current) use of aspirin; Z79.899 Other long term (current) drug therapy; Z88.8 Allergy status to other drugs, medicaments and biological substances; Z88.0 Allergy status to penicillin
CPT/HCPCS: 99291; 36415; 93005; 85379; 80053; 82550; 82553; 83735; 84484; 85025; 85610; 85730; 81003; 87086; 71020; 72114; 74000; G0378; J1644 ×2; 96374

== ENCOUNTER → 2017-02-10 | Outpatient (CLI) | payer OTHER ==
--- NOTE | 2017-02-11 09:11 | US ---
EXAMINATION TYPE: US abdomen complete DATE OF EXAM: 02/10/2017 COMPARISON: NONE CLINICAL HISTORY: Abd Pain R10.9. Midline and LUQ pain that started in October and heartburn, symptoms better now EXAM MEASUREMENTS: Liver Length: 15.7 cm Gallbladder Wall: 0.3 cm CBD: 0.5 cm Spleen: 11.5 cm Right Kidney: 9.5 x 5.0 x 5.4 cm Left Kidney: 12.3 x 5.2 x 6.1 cm overlying bowel gas limits exam Pancreas: limited views appear wnl Liver: difficult to penetrate, intercostal imaging due to gas Gallbladder: wnl Evidence for sonographic Cole's sign: no CBD: wnl Spleen: wnl Right Kidney: wnl Left Kidney: wnl Upper IVC: wnl Abd Aorta: wnl IMPRESSION: 1. Visualized portions of the abdomen ultrasound or unremarkable.
== END | disposition home or self-care (01) ==
LOC: RADUSWWP 15:34
PROVIDERS: ATTEND Family Medicine
DX: R10.9 Unspecified abdominal pain (principal)
CPT/HCPCS: 76700

== ENCOUNTER → 2017-03-13 | Outpatient (CLI) | payer OTHER ==
--- NOTE | 2017-03-13 16:01 | MR ---
MR brain without contrast HISTORY: An 54.81, occipital neuralgia, family history aneurysm Multiplanar multisequence imaging obtained through the brain and correlated to CT brain 08/29/2016 There is no restricted diffusion. Cerebellopontine angles, corpus callosum, pituitary, cervical medul ethan junction are normal. Orbits show symmetric appearance. There are normal vascular flow voids. Bra in signal is maintained with the exception of approximately 2-3 periventricular, deep white matter hy perintensities on inversion recovery and T2-weighted sequences. No hemorrhage or hydrocephalus. Infla mmatory change present in the left maxillary sinus. The orbits show symmetric appearance. IMPRESSION: Nonspecific white matter demyelination of questionable clinical significance. Sinus disea se.
--- NOTE | 2017-03-13 16:08 | MR ---
EXAMINATION TYPE: MR angio head wo con DATE OF EXAM: 03/13/2017 COMPARISON: MR brain same date HISTORY: Family hx of aneurysm, No symptoms, Occipital Neuralgia TECHNIQUE: Time of flight images focusing on the [place] were performed without contrast. FINDINGS: Anterior and posterior circulations are patent. The left vertebral artery is dominant. Ther e is no evident aneurysm or vascular malformation. No filling defect, no dissection or significant st enosis. IMPRESSION: Unremarkable [place] MRA.
== END | disposition home or self-care (01) ==
LOC: RADMRIMAIN 14:40
PROVIDERS: ATTEND Psychiatry & Neurology Neurology
DX: M54.81 Occipital neuralgia (principal)
CPT/HCPCS: 70544; 70551

== ENCOUNTER 2017-03-19 11:16 | Day surgery (SDC) | payer OTHER ==
[2017-03-16 15:19] VITALS: BMI 33.9
[~2017-03-19 11:16] MED LIST: LACTATED RINGERS 1,000 ML IV SCH; LIDOCAINE 1% 20 ML VIAL (10MG/ML) FOR IV START INTRADERMA PRN
[2017-03-19 12:37] VITALS: RESP 18; TEMP 98.5
[2017-03-19] MEDS ORDERED: LACTATED RINGERS 1,000 ML IV ONE (12:38)
[2017-03-19] MEDS ORDERED: LIDOCAINE 1% INJ 10MG/ML (20 ML MDV) ONE (13:07)
[2017-03-19] MEDS ORDERED: PROPOFOL 10 MG/ML 20 ML VIAL IV ONE (13:07)
--- NOTE | 2017-03-19 13:31 | P.PCN ---
Date of Procedure: 03/19/17 Preoperative Diagnosis: Postoperative Diagnosis: Procedure(s) Performed: Brief history: Patient is a pleasant 51-year-old white male, scheduled for an elective upper endoscopy as well as colonoscopy as a part of evaluation of GERD and intermittent rectal bleeding. Procedure performed: Esophagogastroduodenoscopy with biopsy Colonoscopy Preoperative diagnosis: GERD/intermittent rectal bleeding Anest[place]: [facility] [place]: After informed consent was obtained from the patient was brought into the endoscopy unit and IV sedation was administered by anesthesia under continuous monitoring. Initially upper endoscopy was done. The Olympus GF 160 video endoscope was inserted inserted into the mouth and esophagus intubated without any difficulty and was gradually advanced into the stomach and duodenum and carefully examined. The bulb and second part of the duodenum appeared normal. The scope was then withdrawn into the stomach adequately insufflated with air and upon careful examination the antrum had mild gastritis and biopsies were done from this area. The body, cardia and fundus appeared normal. The scope was then withdrawn into the esophagus. The GE junction was located at 40 cm to the incisors. It appeared regular with 2 superficial erosions consistent with LA grade A reflux esophagitis.. Rest of the esophagus appeared normal. Patient tolerated the procedure well. At this time the patient continued to remain sedation. Initial digital rectal examination was normal. Olympus CF 160 video colonoscope was then inserted into the rectum and gradually advanced to the cecum without any difficulty. Careful examination was performed as the scope was gradually being withdrawn. The prep was excellent. The cecum, ascending colon, transverse colon, descending colon, sigmoid colon and rectum appeared normal. Scattered sigmoid diverticulosis seen. Retroflexion was performed in the rectum and no lesions were noted. Patient tolerated the procedure well. Impression: 1. Upper endoscopy revealed mild antral gastritis and LA grade A reflux esophagitis 2. Colonoscopy revealed scattered sigmoid diverticulosis but no evidence of colorectal neoplasia Recommendations: Findings of this examination were discussed with the patient as well as his family. He was advised to follow with the biopsy results. if he continues to have chest pressure or heartburn and he was advised to use [id number] H2 blockers as needed. He can have a repeat colonoscopy in 10 years Implants: Indications for Procedure: Operative Findings: Description of Procedure:
[2017-03-19 13:58] VITALS: BP 129/74; PULSE 58
== END 2017-03-19 14:36 | disposition home or self-care (01) ==
LOC: ORWHC2ENDO 11:16
PROVIDERS: ATTEND Internal Medicine Gastroenterology
DX: K21.9 Gastro-esophageal reflux disease without esophagitis (principal); K29.50 Unspecified chronic gastritis without bleeding; K57.30 Diverticulosis of large intestine without perforation or abscess without bleeding; K62.5 Hemorrhage of anus and rectum; I10 Essential (primary) hypertension; Z79.82 Long term (current) use of aspirin; Z79.899 Other long term (current) drug therapy; Z88.0 Allergy status to penicillin; Z91.09 Other allergy status, other than to drugs and biological substances
CPT/HCPCS: 88305; 88342; 45378; 43239; J2001; J2704

== ENCOUNTER → 2020-11-15 | Outpatient (CLI) | payer OTHER ==
--- NOTE | 2020-11-15 16:14 | XR ---
EXAMINATION TYPE: XR knee limited LT DATE OF EXAM: 11/15/2020 COMPARISON: 04/20/2014 HISTORY: Fall, pain TECHNIQUE: 2 view left knee FINDINGS: No joint effusion is evident. Superficial soft tissue swelling is likely present superior t o the patella. Joint spaces appear preserved. Calcification is within the medial lateral menisci, lik bisi related to calcium pyrophosphate deposition disease. There is some narrowing of the medial compar tment compatible some degenerative change. No acute fractures are evident. Follow up exams can be performed 7-10 days from acute trauma for continued pain. IMPRESSION: 1. No acute osseous abnormality. 2. Superficial soft tissue swelling superior to patella. 3. Calcified menisci.
== END | disposition home or self-care (01) ==
LOC: RADXRMAIN 11:20
PROVIDERS: ATTEND Internal Medicine
DX: M23.304 Other meniscus derangements, unspecified medial meniscus, left knee (principal); M23.301 Other meniscus derangements, unspecified lateral meniscus, left knee

== ENCOUNTER → 2020-11-21 | Outpatient (CLI) | payer OTHER ==
--- NOTE | 2020-11-21 15:04 | US ---
EXAMINATION TYPE: US kidneys/renal and bladder DATE OF EXAM: 11/21/2020 COMPARISON: NONE CLINICAL HISTORY: R94.4 Abnormal results of kidney function studies. abn renl function EXAM MEASUREMENTS: Right Kidney: 10.5 x 4.8 x 4.4 cm Left Kidney: 11.9 x 6.1 x 3.4 cm Right Kidney: No hydronephrosis or masses seen Left Kidney: No hydronephrosis or masses seen Bladder: wnl Bilateral Jets seen: Yes There is no evidence for hydronephrosis at this point in time. No nephrolithiasis is seen. No kaylee s are identified. The urinary bladder is anechoic. Bilateral ureteral jets are seen. IMPRESSION: No distinct abnormality seen.
== END | disposition home or self-care (01) ==
LOC: RADUSWWP 14:35
PROVIDERS: ATTEND Family Medicine
DX: R94.4 Abnormal results of kidney function studies (principal)
CPT/HCPCS: 76770

== ENCOUNTER → 2022-07-15 | Outpatient (CLI) | payer OTHER ==
[2022-07-15 19:07] LABS: HCT 48.7 % (39.6-50.0); HGB 15.6 g/dL (13.0-17.0); MCH 28.8 pg (27.0-32.0); MCV 89.9 fL (80.0-97.0); Mean Platelet Volume 9.8 fL (9.5-12.2); NRBC Per 100 WBC 0 /100 WBCS (0.0-0.0); Platelet Count 289 X 10*3/uL (140-440); RBC 5.42 X 10*6/uL (4.40-5.60); RDW 12.9 % (11.5-14.5); WBC 9.25 X 10*3/uL (4.50-10.00)
[2022-07-15 19:30] LABS: Appearance,Urine Clear (Clear); Bilirubin,Urine Negative (Negative); Blood,Urine Trace (Negative); Color,Urine Yellow (Yellow); Ketones,Urine 15 mg/dL (Negative); Nitrite,Urine Negative (Negative); PH, Urine 5.5 (5.0-8.0); Specific Gravity,Urine 1.017 (1.001-1.030); Urobilinogen,Urine 0.2 (0.2,1.0)
[2022-07-15 19:37] LABS: Bacteria,Urine None Seen /HPF (None Seen)
[2022-07-15 19:45] LABS: ALT 52 U/L (10-49); AST 32 U/L (14-35); African American GFR (CKD) 86.9 (60.0-200.0); BUN/Creat Ratio 11.83 Ratio (12.00-20.00); Blood Urea Nitrogen 12.9 mg/dL (9.0-27.0); Calcium 9.1 mg/dL (8.7-10.3); Carbon Dioxide 26.8 mmol/L (20.0-27.5); Chloride 99 mmol/L (96-109); Chol/HDL Ratio 5.26 Ratio; Glucose 95 mg/dL (70-110); LDL Cholesterol,Calculated 142.2 mg/dL (0.0-131.0); Potassium 3.8 mmol/L (3.5-5.5); Sodium 137 mmol/L (135-145)
== END | disposition home or self-care (01) ==
LOC: LABWHC1 13:26
PROVIDERS: ATTEND Family Medicine
DX: Z00.01 Encounter for general adult medical examination with abnormal findings (principal); I10 Essential (primary) hypertension; E78.5 Hyperlipidemia, unspecified; E66.9 Obesity, unspecified; N40.0 Benign prostatic hyperplasia without lower urinary tract symptoms
CPT/HCPCS: 36415; 80048; 80061; 81001; 83036; 84153; 84450; 84460; 85027

== ENCOUNTER 2024-10-18 10:17 | Emergency (ER) | payer OTHER ==
[2024-10-18 10:24] VITALS: RESP 20
--- NOTE | 2024-10-18 10:39 | ED ---
Lower Extremity Injury HPI - General Chief Complaint: Extremity Injury, Lower Stated Complaint: [facility] Time Seen by Provider: 10/18/24 10:36 Source: patient, RN notes reviewed Mode of arrival: ambulatory Limitations: no limitations - History of Present Illness Initial Comments: 59-year-old male sent from work for right lower leg injury. States this morning he was carrying heavy loads of laundry. Shortly after loading, he noticed a pain in his right calf with weightbearing. States pain is worse with initial weightbearing after sitting and improves with continued ambulation. Reports no pain with sitting or laying. He was sent for [facility]. - Related Data Home Medications Medication Instructions Recorded Confirmed lisinopriL [Zestril] 10 mg PO DAILY 12/27/14 03/16/17 Fish Oil/Dha/Epa [Fish Oil 1,200 1 cap PO DAILY 08/29/16 03/16/17 mg Fish Oil] Glucosamine Sulfate 500 mg PO DAILY 08/29/16 03/16/17 Turmeric Root Extract [Turmeric] 500 mg PO DAILY 08/29/16 03/16/17 Aspirin 81 mg PO DAILY 11/13/16 03/16/17 Allergies Allergy/AdvReac Type Severity Reaction Status Date / Time cortisone Allergy Unknown Rash/Hives Verified 10/18/24 10:23 Penicillins Allergy Unknown Hallucinati Verified 10/18/24 10:23 ons Review of Systems ROS Statement: Those systems with pertinent positive or pertinent negative responses have been documented in the HPI. ROS Other: All systems not noted in ROS Statement are negative. Past Medical History Past Medical History: Asthma, Hypertension Additional Past Medical History / Comment(s): Pt states he has had L sided head pain intermittently since 08/2016, he states yrs ago after carrying a heavy air conditioner up several stairs he had severe tachycardia-he recently was seen by Dr. Menendez and is wearing a cardiac recording device. PAST HX OF ASTHMA, "RIGHT KIDNEY HURTS ON OCCASION", athritis bilateral knees. History of Any Multi-Drug Resistant Organisms: None Reported Past Surgical History: Orthopedic Surgery Additional Past Surgical History / Comment(s): R knee arthroscopy Past Anesthesia/Blood Transfusion Reactions: No Reported Reaction Additional Past Anesthesia/Blood Transfusion Reaction / Comment(s): HAS NEVER RECEIVED ANETHESIA Past Psychological History: No Psychological Hx Reported Smoking Status: Never smoker Past Alcohol Use History: None Reported Past Drug Use History: None Reported - Past Family History Father History Unknown: Yes Mother Additional Family Medical History / Comment(s): CLOT IN BRAIN? Mother at the age of 85yrs. General Exam Limitations: no limitations General appearance: alert, in no apparent distress Head exam: Present: atraumatic, normocephalic, normal inspection Right Knee exam: Present: normal inspection, full ROM. Absent: tenderness, swelling Lower Leg exam: Present: normal inspection, full ROM (Negative Munoz test, Achilles tendon is intact), tenderness (Mild calf tenderness). Absent: swelling, abrasion, deformity, erythema, palpable cord Ankle exam: Present: normal inspection, full ROM. Absent: tenderness, swelling Foot/Toe exam: Present: normal inspection, full ROM. Absent: tenderness, swelling Neurovascular tendon exam: Present: no vascular compromise. Absent: pulse deficit, abnormal cap refill, sensory deficit Neurological exam: Present: alert, oriented X3 Psychiatric exam: Present: normal affect, normal mood Skin exam: Present: warm, dry, intact, normal color. Absent: rash Course Vital Signs 10/18/24 10:21 Temperature 98.2 F Pulse Rate 76 Respiratory 20 Rate Blood Pressure 184/98 O2 Sat by Pulse 97 Oximetry Medical Decision Making - Medical Decision Making Was pt. sent in by a medical professional or institution ([facility], COURT MANAGER, urgent care, hospital, or [facility]...) When possible be specific @ -No Did you speak to anyone other than the patient for history (EMS, parent, family, police, friend...)? What history was obtained from this source @ -No Did you review nursing and triage notes (agree or disagree)? Why? @ -I reviewed and agree with nursing and triage notes Were old charts reviewed (outside hosp., previous admission, EMS record, old EKG, old radiological studies, urgent care reports/EKG's, [facility] records)? Report findings @ -No old charts were reviewed Differential Diagnosis (chest pain, altered mental status, abdominal pain women, abdominal pain men, vaginal bleeding, weakness, fever, dyspnea, syncope, headache, dizziness, GI bleed, back pain, seizure, CVA, palpatations, mental health, musculoskeletal)? @ -Differential Musculoskeletal Muscular strain, contusion, ligament sprain, fracture, arthritis, septic arthritis, bursitis, cellulitis, muscle spasm, nerve compression, DVT, arterial occlusion, herpes zoster, electrolyte abnormality, tumor.... This is not meant to be in all inclusive list EKG interpreted by me (3pts min.). @ -None X-rays interpreted by me (1pt min.). @ -X-ray right tib-fib reveals no acute process CT interpreted by me (1pt min.). @ -None done U/S interpreted by me (1pt. min.). @ -None done What testing was considered but not performed or refused? (CT, X-rays, U/S, labs)? Why? @ -None What meds were considered but not given or refused? Why? @ -None Did you discuss the management of the patient with other professionals (professionals i.e. , PA, COURT MANAGER, lab, RT, psych nurse, manager social responsibility, senior solutions architect, teacher, detention officer, case mgr)? Give summary @ -No Was smoking cessation discussed for >3mins.? @ -No Was critical care preformed (if so, how long)? @ -No Were there social determinants of health that impacted care today? How? (Homelessness, low income, unemployed, alcoholism, drug addiction, trans portation, low edu. Level, literacy, decrease access to med. care, nursing home, rehab)? @ -No Was there de-escalation of care discussed even if they declined (Discuss DNR or withdrawal of care, Hospice)? DNR status @ -No What co-morbidities impacted this encounter? (DM, HTN, Smoking, COPD, CAD, Cancer, CVA, ARF, Chemo, Hep., AIDS, mental health diagnosis, sleep apnea, morbid obesity)? @ -None Was patient admitted / discharged? Hospital course, mention meds given and route, prescriptions, significant lab abnormalities, going to OR and other pertinent info. @ -Discharge. 59-year-old male presenting for right lower leg injury this morning. He is able to weight-bear. Neurovascularly intact. Achilles tendon is intact. X-ray right tib-fib reveals no acute process. Discussed diagnosis of right lower leg muscle strain. Appropriate return precautions and supportive care discussed. Case was discussed with ED attending Dr. Childress. Undiagnosed new problem with uncertain prognosis? @ -No Drug Therapy requiring intensive monitoring for toxicity (Heparin, Nitro, Insulin, Cardizem)? @ -No Were any procedures done? @ -No Diagnosis/symptom? @ -Right lower leg muscle strain Acute, or Chronic, or Acute on Chronic? @ -Acute Uncomplicated (without systemic symptoms) or Complicated (systemic symptoms)? @ -Uncomplicated Side effects of treatment? @ -No Exacerbation, Progression, or Severe Exacerbation? @ -No Poses a threat to life or bodily function? How? (Chest pain, [place], [place], pneumonia, PE, COPD, DKA, ARF, appy, cholecystitis, CVA, Diverticulitis, Homicidal, Suicidal, threat to staff... and all critical care pts) @ -No Disposition Clinical Impression: Muscle strain of right lower leg Disposition: HOME SELF-CARE Condition: Stable Instructions (If sedation given, give patient instructions): Muscle Strain (ED) Additional Instructions: Rest, ice, and elevate the right leg. Use Tylenol or ibuprofen as needed for pain. Please return to the Emergency Department if symptoms worsen or any other concerns. Is patient prescribed a controlled substance at d/c from ED?: No Referrals: Homer Saraiva DO [Primary Care Provider] - 1-2 days Time of Disposition: 11:47
--- NOTE | 2024-10-18 11:21 | XR ---
EXAMINATION TYPE: XR tibia fibula RT DATE OF EXAM: 10/18/2024 11:13 AM INDICATION: Patient age:Male; 59 years old; Reason for study: right lower leg injury; [facility]. pain COMPARISON: Right knee radiograph 10/17/2014 TECHNIQUE: The right tibia/fibula was examined in AP and lateral projections. FINDINGS: No evidence of any acute osseous pathology, joint dislocation, or soft tissue swelling is n oted. Well-corticated osseous structure inferior to the lateral malleolus possibly representing remot e injury versus ossicle. No radiopaque foreign body. No sclerotic or lytic lesion. No soft tissue gas identified. No periosteal reaction. IMPRESSION: No evidence of acute fracture. [facility], , 10/18/2024 11:18 AM
[2024-10-18 11:58] VITALS: BP 163/90; PULSE 90; TEMP 98.1
== END 2024-10-18 11:58 | disposition home or self-care (01) ==
LOC: EC 10:17
DX: S86.911A Strain of unspecified muscle(s) and tendon(s) at lower leg level, right leg, initial encounter (principal); X50.0XXA Overexertion from strenuous movement or load, initial encounter; Y99.0 Civilian activity done for income or pay
CPT/HCPCS: 99283